=== PATIENT | male | born 1975 | race African-American/Black ===

== ENCOUNTER 2018-04-19 11:15 | Emergency (ER) | END 2018-04-19 13:06 | disposition home or self-care (01) ==

== ENCOUNTER 2018-08-26 06:27 | Emergency (ER) | payer OTHER ==
[~2018-08-26] VITALS: Ht 185.4 cm; Wt 102.4 kg
[~2018-08-26 06:27] MED LIST: CYCL10TA7 PO; NAPR-985 PO
[2018-08-26 06:30] VITALS: BP 139/73; PULSE 76; RESP 16; Ht 185.4 cm; Wt 102.4 kg
[2018-08-26] MEDS ORDERED: KETOROLAC 30 MG INJ IM STA (07:15)
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
[2018-08-26] MEDS ORDERED: NAPR-985 PO (07:23)
[2018-08-26] MEDS ORDERED: GABA300C16 PO (07:23)
[2018-08-26] MEDS ORDERED: DEXAMETHASONE 10 MG/ML 1 ML INJ IM ONE (07:30)
== END 2018-08-26 07:35 | disposition home or self-care (01) ==
LOC: FTE 06:27
DX: M54.42 Lumbago with sciatica, left side (principal); F17.210 Nicotine dependence, cigarettes, uncomplicated
CPT/HCPCS: 96372; J1100; J1885; Z7502